=== PATIENT | female | born 1955 | race Caucasian/White ===

== ENCOUNTER → 2018-09-10 | Outpatient (CLI) | payer BC ==
--- NOTE | 2018-09-10 12:30 | PCVCIMAG ---
APPROVED REPORT Study performed: 09/10/2018 10:39:07 EXAM: Comprehensive 2D, Doppler, and color-flow Echocardiogram Patient Location: Echo lab Status: routine BSA: 2.06 HR: 80 bpmBP: 120/78 mmHg Rhythm: NSR Other Information Study Quality: Good Indications Dyspnea Fatigue Chest Pain 2D Dimensions IVSd: 6.91 (7-11mm)LVOT Diam: 22.00 (18-24mm) LVDd: 40.56 mm PWd: 8.53 (7-11mm)Ascending Ao: 30.51 (22-36mm) LVDs: 30.21 (25-40mm) Left Atrium: 30.31 (27-40mm) Aortic Root: 29.69 mm LV Single Plane 4CH: 53.44 % LV Single Plane 2CH: 59.21 % Biplane EF: 58.3 % Volumes Left Atrial Volume (Systole) Single Plane 4CH: 62.71 mLSingle Plane 2CH: 39.43 mL LA ESV Index: 25.00 mL/m2 Aortic Valve AoV Peak Jose.: 1.26 m/s AO Peak Gr.: 6.31 mmHgLVOT Max P.99 mmHg LVOT Max V: 0.87 m/s BRIELLE Vmax: 2.52 cm2 AI Vmax: 4.59 m/s AI Lea: 3.03 m/s2 AI PHT: 440.86 ms Mitral Valve E/A Ratio: 0.7 MV Decel. Time: 161.83 ms MV E Max Jose.: 0.62 m/s MV A Jose.: 0.91 m/s IVRT: 58.82 ms TDI E/Lateral E': 10.33E/Medial E': 10.33 Medial E' Jose.: 0.06 m/s Lateral E' Jose.: 0.06 m/s Pulmonary Valve PV Peak Jose.: 0.74 m/sPV Peak Gr.: 2.24 mmHg NY End Vmax: 1.12 m/s Pulmonary Vein P Vein S: 0.30 m/sP Vein A: 0.32 m/s P Vein D: 0.42 m/sP Vein A Dur.: 72.7 msec P Vein S/D Ratio: 0.71 Tricuspid Valve RAP Estimate: 7.00 mmHg Left Ventricle The left ventricle is normal size. There is normal LV segmental wall motion. There is normal left ventricular wall thickness. Left ventricular systolic function is normal. The left ventricular ejection fraction is within the normal range. LVEF is 55-60%. Grade I - abnormal relaxation pattern. Right Ventricle The right ventricle is normal size. The right ventricular systolic function is normal. Atria The left atrium size is normal. The right atrium size is normal. Aortic Valve The aortic valve is normal in structure. Mild to moderate aortic regurgitation. There is no aortic valvular stenosis. Mitral Valve The mitral valve is normal in structure. Mild mitral regurgitation. No evidence of mitral valve stenosis. Tricuspid Valve The tricuspid valve is normal in structure. Trace tricuspid regurgitation. Unable to assess PA pressure. Pulmonic Valve The pulmonary valve is normal in structure. Mild pulmonic regurgitation. Great Vessels The aortic root is normal in size. IVC is normal in size and collapses >50% with inspiration. Pericardium There is no pericardial effusion. <Conclusion> The left ventricle is normal size. LVEF is 55-60%. Grade I - abnormal relaxation pattern. The right ventricle is normal size. The left atrium size is normal. Mild to moderate aortic regurgitation. Mild mitral regurgitation. Trace tricuspid regurgitation. Unable to assess PA pressure. The aortic root is normal in size. There is no pericardial effusion.
== END | disposition home or self-care (01) ==
LOC: PCVCIMAG 10:37
PROVIDERS: ATTEND Internal Medicine Cardiovascular Disease
DX: I08.0 Rheumatic disorders of both mitral and aortic valves (principal)
CPT/HCPCS: 93306